=== PATIENT | male | born 1940 | race American Indian/Alaskan Native ===

== ENCOUNTER 2017-05-28 11:47 | Emergency (ER) | payer MEDICARE ==
--- NOTE | 2017-05-28 13:23 | Emergency Department Report ---
ED General Adult HPI - General Chief complaint: Skin/Abscess/Foreign Body Stated complaint: FACIAL SWELLING Time Seen by Provider: 05/28/17 13:13 Source: patient, family Mode of arrival: Ambulatory Limitations: No Limitations - History of Present Illness Initial comments: " I believe i was stung by a bug or something on my face, pain and itching since " Onset/Timin -: week(s) Location: face Radiation: non-radiation Severity scale (0 -10): 2 Quality: burning, other (itching ) Consistency: intermittent Improves with: other (nothing ) Worsens with: none Associated Symptoms: denies other symptoms Treatments Prior to Arrival: none - Related Data Previous Rx's Medication Instructions Recorded Last Taken Type Cephalexin [Keflex] 250 mg PO TID #21 capsule 05/28/17 Unknown Rx Neomycin Eason/Bacitrac Zn/Poly 14.2 gm TP BID #1 tube 05/28/17 Unknown Rx [Neosporin Antibiotic Ointment] ED Review of Systems ROS: Stated complaint: FACIAL SWELLING Other details as noted in HPI Constitutional: denies: chills, fever Eyes: denies: eye pain, eye discharge, vision change ENT: denies: ear pain, throat pain Respiratory: denies: cough, shortness of breath, wheezing Cardiovascular: denies: chest pain, palpitations Endocrine: no symptoms reported Gastrointestinal: denies: abdominal pain, nausea, diarrhea Genitourinary: denies: urgency, dysuria Musculoskeletal: denies: back pain, joint swelling, arthralgia Skin: lesions, other (abscess facial ) Neurological: denies: headache, weakness, paresthesias Psychiatric: denies: anxiety, depression Hematological/Lymphatic: denies: easy bleeding, easy bruising ED Past Medical Hx - Past Medical History Hx Hypertension: Yes Hx Dementia: Yes (Early stage) - Surgical History Past Surgical History?: No - Medications Home Medications: Home Medications Medication Instructions Recorded Confirmed Last Taken Type Cephalexin [Keflex] 250 mg PO TID #21 capsule 05/28/17 Unknown Rx Neomycin Eason/Bacitrac Zn/Poly 14.2 gm TP BID #1 tube 05/28/17 Unknown Rx [Neosporin Antibiotic Ointment] ED Physical Exam - General Limitations: No Limitations General appearance: alert, in no apparent distress - Head Head exam: Present: normocephalic, other (facial abscess less than 1 cm smooth erythema no drainage no fluctuant ) - Eye Eye exam: Present: normal appearance - ENT ENT exam: Present: mucous membranes moist, TM's normal bilaterally, normal external ear exam - Neck Neck exam: Present: normal inspection, full ROM. Absent: tenderness, lymphadenopathy, thyromegaly - Respiratory Respiratory exam: Present: normal lung sounds bilaterally. Absent: respiratory distress - Cardiovascular Cardiovascular Exam: Present: regular rate, normal rhythm. Absent: systolic murmur, diastolic murmur, rubs, gallop - GI/Abdominal GI/Abdominal exam: Present: soft, normal bowel sounds - Rectal Rectal exam: Present: deferred - Extremities Exam Extremities exam: Present: normal inspection - Back Exam Back exam: Present: normal inspection - Neurological Exam Neurological exam: Present: alert, oriented X3 - Psychiatric Psychiatric exam: Present: normal affect, normal mood - Skin Skin exam: Present: warm, dry, intact, erythema (facial abscess right cheek less than 1 dm ). Absent: vesicles, petechiae, pallor, abrasion, ecchymosis ED Medical Decision Making - Medical Decision Making pt is a 76 y/o aam with right cheek facial abscess less than 1 cm s/p insect bite 1 week ago pt advise clear/white discharge to expesion, pt attempts expriession daily , currently scabed over nonfluctant, no oral, sinus, or nasal involvment , will treat with short round of keflex, warm compresses , wash with soap and water return if symptoms worsen , pt verbalized agreement and understanding of discharge plan. Critical care attestation.: If time is entered above; I have spent that time in minutes in the direct care of this critically ill patient, excluding procedure time. ED Disposition Clinical Impression: Facial abscess Disposition: DC-01 TO HOME OR SELFCARE Is pt being admited?: No Does the pt Need Aspirin: No Condition: Good Instructions: Abscess (ED) Prescriptions: Cephalexin [Keflex] 250 mg PO TID #21 capsule Neomycin Eason/Bacitrac Zn/Poly [Neosporin Antibiotic Ointment] 14.2 gm TP BID #1 tube Referrals: PRIMARY CARE, [Primary Care Provider] - 3-5 Days Forms: Work/School Release Form(ED) Time of Disposition: 13:30
== END 2017-05-28 13:57 | disposition home or self-care (01) ==
LOC: ED 11:47
DX: L02.01 Cutaneous abscess of face (principal); I10 Essential (primary) hypertension; F03.90 Unspecified dementia, unspecified severity, without behavioral disturbance, psychotic disturbance, mood disturbance, and anxiety
CPT/HCPCS: 99282